=== PATIENT | male | born 1950 | race Caucasian/White ===

== ENCOUNTER 2022-03-31 08:23 | Outpatient (CLI) | payer MEDICARE | END 2022-03-31 08:24 | disposition home or self-care (01) | LOC: LABBT 08:23 | PROVIDERS: ATTEND Ophthalmology Retina Specialist | DX: Z20.822 Contact with and (suspected) exposure to COVID-19 (principal) | CPT/HCPCS: 87811 ==

== ENCOUNTER 2022-04-05 05:55 | Day surgery (SDC) | payer MEDICARE ==
[2022-04-01 13:45] VITALS: BMI 25.1
[~2022-04-05 05:55] MED LIST: EPINEPHrine 0.3 MG in Ophthalmic Irrigation Solution 500 ML IRR SCH
[2022-04-05] MEDS ORDERED: Phenylephrine 2.5% Ophth Soln 5 ML BOT ONE (06:14)
[2022-04-05] MEDS ORDERED: Cyclopentolate 1% Opth Drop 2 ML BOT ONE (06:14)
[2022-04-05] MEDS ORDERED: fentaNYL Citrate/PF 100 MCG/2 ML SYRINGE ONE (06:39)
[2022-04-05] MEDS ORDERED: PROPOFOL 20 ML ONE (06:39)
[2022-04-05] MEDS ORDERED: Midazolam HCl 2 mg/2 ml Vial ONE (06:39)
[2022-04-05] MEDS ORDERED: Maxitrol 0.1% Opth Oint 3.5 GM TUBE ONE (11:57)
[2022-04-05] MEDS ORDERED: PROPOFOL 200 MG/20 ML VIAL ONE (11:57)
[2022-04-05] MEDS ORDERED: Glycopyrrolate 0.2 MG/ML 5 ML SYRINGE ONE (11:57)
[2022-04-05] MEDS ORDERED: Triamcinolone 40 MG/ML VIAL ONE (11:57)
[2022-04-05] MEDS ORDERED: Lidocaine 4% PF 5 ML AMP ONE (11:57)
[2022-04-05] MEDS ORDERED: Bupivacaine 0.75% 10 ML VIAL ONE (11:57)
[2022-04-05] MEDS ORDERED: Phenylephrine 10 MG/ML VIAL ONE (11:57)
[2022-04-05] MEDS ORDERED: Indocyanine Green 25 MG/10 ML VIAL ONE (11:57)
[2022-04-05] MEDS ORDERED: CEFAZOLIN 1 GM VIAL ONE (11:57)
[2022-04-05] MEDS ORDERED: Lidocaine 1% PF 5 ML VIAL ONE (11:57)
== END 2022-04-05 09:04 | disposition home or self-care (01) ==
LOC: SDC 05:55
PROVIDERS: ATTEND Ophthalmology Retina Specialist
PROC: 08T43ZZ Resection of Right Vitreous, Percutaneous Approach (ICD-10-PCS; principal; 2022-04-05)
PROC: 08NE3ZZ Release Right Retina, Percutaneous Approach (ICD-10-PCS; 2022-04-05)
DX: H35.371 Puckering of macula, right eye (principal); I10 Essential (primary) hypertension; E11.9 Type 2 diabetes mellitus without complications; Z87.891 Personal history of nicotine dependence; Z79.84 Long term (current) use of oral hypoglycemic drugs; Z79.899 Other long term (current) drug therapy; Z98.41 Cataract extraction status, right eye; Z98.42 Cataract extraction status, left eye; Z96.1 Presence of intraocular lens
CPT/HCPCS: J0171; J0690; J2250; J2370; J2704; J3301; J3490

== ENCOUNTER 2022-08-02 06:52 | Day surgery (SDC) | payer MEDICARE ==
[2022-08-01 16:19] VITALS: BMI 25.8
[~2022-08-02 06:52] MED LIST changes: +Midazolam HCl 2 mg/2 ml Vial ONE; +fentaNYL PF 100 MCG/2 ML SYRINGE ONE
[2022-08-02] MEDS ORDERED: Phenylephrine 2.5% Ophth Soln 5 ML BOT ONE (07:43)
[2022-08-02] MEDS ORDERED: Cyclopentolate 1% Opth Drop 2 ML BOT ONE (07:43)
[2022-08-02] MEDS ORDERED: Ondansetron PF 4 MG/2 ML Vial ONE (09:09)
[2022-08-02] MEDS ORDERED: Dexamethasone 20 MG/5 ML VIAL ONE (09:09)
[2022-08-02] MEDS ORDERED: Lidocaine 1% PF 5 ML VIAL ONE ×2 (09:09→09:11)
[2022-08-02] MEDS ORDERED: PROPOFOL 200 MG/20 ML VIAL ONE ×2 (09:09→09:11)
[2022-08-02] MEDS ORDERED: Indocyanine Green 25 MG/10 ML VIAL ONE (09:11)
[2022-08-02] MEDS ORDERED: Maxitrol 0.1% Opth Oint 3.5 GM TUBE ONE (09:11)
[2022-08-02] MEDS ORDERED: Lidocaine 4% PF 5 ML AMP ONE (09:11)
[2022-08-02] MEDS ORDERED: Bupivacaine 0.75% 10 ML VIAL ONE (09:11)
[2022-08-02] MEDS ORDERED: Glycopyrrolate 0.2 MG/ML 5 ML SYRINGE ONE (09:11)
[2022-08-02] MEDS ORDERED: Triamcinolone 40 MG/ML VIAL ONE (09:11)
[2022-08-02] MEDS ORDERED: CEFAZOLIN 1 GM VIAL ONE (09:11)
== END 2022-08-02 10:50 | disposition home or self-care (01) ==
LOC: SDC 06:52
PROVIDERS: ATTEND Ophthalmology Retina Specialist
PROC: 08T53ZZ Resection of Left Vitreous, Percutaneous Approach (ICD-10-PCS; principal; 2022-08-02)
DX: H35.372 Puckering of macula, left eye (principal); Z79.84 Long term (current) use of oral hypoglycemic drugs; Z79.899 Other long term (current) drug therapy; Z98.41 Cataract extraction status, right eye; Z98.42 Cataract extraction status, left eye; Z96.1 Presence of intraocular lens
CPT/HCPCS: J0171; J0690; J1100; J2250; J2405; J2704; J3301; J3490